=== PATIENT | male | born 1990 | race Hispanic/Latino ===

== ENCOUNTER 2017-12-28 21:26 | Emergency (ER) | payer BC ==
--- NOTE | 2017-12-28 23:50 | EDPHYS ---
Physician Documentation [facility] Name: Eliazar Mallory III Age: 27 yrs Sex: Male : 1990 Arrival Date: 12/28/2017 Time: 21:33 Bed 16 Private MD: ED Physician Jett Quinn HPI: 12/28 23:35 This 27 yrs old Male presents to ER via Ambulatory with complaints of Hand jr8 Injury. 23:35 The patient or guardian reports decreased range of motion, pain. The complaints affect jr8 the right hand diffusely. Context: The problem was sustained at home, resulted from a direct blow. Onset: The symptoms/episode began/occurred acutely, today. Modifying factors: The symptoms are alleviated by nothing, the symptoms are aggravated by movement. Associated signs and symptoms: The patient has no apparent associated signs or symptoms. Severity of symptoms: At their worst the symptoms were moderate, in the emergency department the symptoms are unchanged. The patient has not experienced similar symptoms in the past. The patient has not recently seen a physician. Patient stated that he punched a wall out of anger. Pain to right hand now . Historical: - Allergies: 21:52 No Known Allergies; la1 - PMHx: 21:52 None; la1 - Immunization history:: Adult Immunizations up to date. - Social history:: Smoking status: Patient/guardian denies using tobacco. ROS: 23:35 Eyes: Negative for injury, pain, redness, and discharge, ENT: Negative for injury, jr8 pain, and discharge, Neck: Negative for injury, pain, and swelling, Cardiovascular: Negative for chest pain, palpitations, and edema, Respiratory: Negative for shortness of breath, cough, wheezing, and pleuritic chest pain, Abdomen/GI: Negative for abdominal pain, nausea, vomiting, diarrhea, and constipation, Back: Negative for injury and pain, Skin: Negative for injury, rash, and discoloration, Neuro: Negative for headache, weakness, numbness, tingling, and seizure. 23:35 MS/extremity: Positive for pain, swelling, tenderness, of the right hand. Exam: 23:35 Head/Face: Normocephalic, atraumatic. Eyes: Pupils equal round and reactive to light, jr8 extra-ocular motions intact. Lids and lashes normal. Conjunctiva and sclera are non-icteric and not injected. Cornea within normal limits. Periorbital areas with no swelling, redness, or edema. ENT: Nares patent. No nasal discharge, no septal abnormalities noted. Tympanic membranes are normal and external auditory canals are clear. Oropharynx with no redness, swelling, or masses, exudates, or evidence of obstruction, uvula midline. Mucous membranes moist. Neck: Trachea midline, no thyromegaly or masses palpated, and no cervical lymphadenopathy. Supple, full range of motion without nuchal rigidity, or vertebral point tenderness. No Meningismus. Cardiovascular: Regular rate and rhythm with a normal S1 and S2. No gallops, murmurs, or rubs. Normal PMI, no JVD. No pulse deficits. Respiratory: Lungs have equal breath sounds bilaterally, clear to auscultation and percussion. No rales, rhonchi or wheezes noted. No increased work of breathing, no retractions or nasal flaring. Abdomen/GI: Soft, non-tender, with normal bowel sounds. No distension or tympany. No guarding or rebound. No evidence of tenderness throughout. Back: No spinal tenderness. No costovertebral tenderness. Full range of motion. Skin: Warm, dry with normal turgor. Normal color with no rashes, no lesions, and no evidence of cellulitis. Neuro: Awake and alert, GCS 15, oriented to person, place, time, and situation. Cranial nerves II-XII grossly intact. Motor strength 5/5 in all extremities. Sensory grossly intact. Cerebellar exam normal. Normal gait. 23:35 Musculoskeletal/extremity: Extremities: grossly normal except: noted in the right hand: decreased ROM, ecchymosis, pain, swelling, tenderness, ROM: full active range of motion, limited passive range of motion, limited active range of motion due to pain, limited passive range of motion due to pain, Circulation is intact in all extremities. Sensation intact. Moderate swelling noted to dorsum of right hand. No obvious deformity noted . Vital Signs: 21:52 Pulse 90; Resp 16; Temp 98.4; Pulse Ox 100% on R/A; Weight 99.79 kg; Height 5 ft. 8 in. la1 (172.72 cm); 21:52 BP 126 / 79; la1 23:34 BP 146 / 92; Pulse 81; Resp 16; Pulse Ox 99% on R/A; aa1 21:52 Body Mass Index 33.45 (99.79 kg, 172.72 cm) la1 Procedures: 23:48 Splinting: Splint applied to dorsum of right hand and right hand using Orthoglass jr8 splint, applied by tech. Examined by me, post splint application: neurovascular intact, 2+ distal pulses palpable, brisk capillary refill noted, Patient tolerated well. MDM: 23:30 Patient medically screened. jr8 23:48 Data reviewed: vital signs, nurses notes, radiologic studies, plain films, and as a jr8 result, I will discharge patient. Data interpreted: Pulse oximetry: on room air is 99 %. Interpretation: normal. Counseling: I had a detailed discussion with the patient and/or guardian regarding: the historical points, exam findings, and any diagnostic results supporting the discharge/admit diagnosis, radiology results, the need for outpatient follow up, a orthopedic surgeon, to return to the emergency department if symptoms worsen or persist or if there are any questions or concerns that arise at home. 12/28 23:11 Order name: Hand Right 3 View XRAY snw 12/28 23:48 Order name: Splint - Ulnar Gutter; Complete Time: 23:59 jr8 Administered Medications: No medications were administered Disposition: 12/29 00:20 Co-signature as Attending Physician, Jett Quinn MD. caleb Disposition: 12/28/17 23:49 Discharged to Home. Impression: Displaced fracture of base of fifth metacarpal bone, right hand. - Condition is Stable. - Discharge Instructions: Hand Fracture, Fifth Metacarpal. - Prescriptions for Ibuprofen 800 mg Oral Tablet - take 1 tablet by ORAL route every 12 hours As needed take with food; 20 tablet. - Medication Reconciliation Form, Thank You Letter, Antibiotic Education, Prescription Opioid Use form. - Follow up: Osbaldo Barakat MD; When: 2 - 3 days; Reason: Recheck today's complaints, Continuance of care, Re-evaluation by your physician. - Problem is new. - Symptoms have improved. Signatures: Dispatcher [employer] Anita Yun, RN RN aa1 Jett Quinn MD MD pkl Ej Rubio PA PA jr8 Xavier Emanuel RN RN la1
--- NOTE | 2017-12-28 23:50 | ER ---
Nurse's Notes [facility] Name: Eliazar Mallory III Age: 27 yrs Sex: Male : 1990 Arrival Date: 12/28/2017 Time: 21:33 Bed 16 Private MD: Diagnosis: Displaced fracture of base of fifth metacarpal bone, right hand Presentation: 12/28 21:51 Presenting complaint: Patient states: I punched a wall and want to see if I broke my la1 right hand. Transition of care: patient was not received from another setting of care. Onset of symptoms was December 28, 2017. Care prior to arrival: None. 21:51 Method Of Arrival: Ambulatory la1 21:51 Acuity: BRITNI 4 la1 Historical: - Allergies: 21:52 No Known Allergies; la1 - PMHx: 21:52 None; la1 - Immunization history:: Adult Immunizations up to date. - Social history:: Smoking status: Patient/guardian denies using tobacco. Screenin:34 Abuse screen: Denies threats or abuse. Denies injuries from another. Nutritional aa1 screening: No deficits noted. Tuberculosis screening: No symptoms or risk factors identified. Fall Risk None identified. Assessment: 23:34 General: Appears in no apparent distress. comfortable, Behavior is calm, cooperative, aa1 appropriate for age. Pain: Complains of pain in right hand. Neuro: Level of Consciousness is awake, alert, obeys commands, Oriented to person, place, time, situation. Respiratory: Airway is patent Respiratory effort is even, unlabored, Respiratory pattern is regular, symmetrical. GI: No signs and/or symptoms were reported involving the gastrointestinal system. : No signs and/or symptoms were reported regarding the genitourinary system. EENT: No signs and/or symptoms were reported regarding the EENT system. Derm: Skin is intact, is healthy with good turgor, Skin is pink, warm \T\ dry. Musculoskeletal: Circulation, motion, and sensation intact. Capillary refill < 3 seconds, Swelling present in dorsum of right hand. 12/29 00:00 Reassessment: Patient appears in no apparent distress at this time. Patient is alert, aa1 oriented x 3, equal unlabored respirations, skin warm/dry/pink. Discussed d/c \T\ f/u instructions with pt; denies questions or concerns at this time. Vital Signs: 12/28 21:52 Pulse 90; Resp 16; Temp 98.4; Pulse Ox 100% on R/A; Weight 99.79 kg; Height 5 ft. 8 in. la1 (172.72 cm); 21:52 BP 126 / 79; la1 23:34 BP 146 / 92; Pulse 81; Resp 16; Pulse Ox 99% on R/A; aa1 21:52 Body Mass Index 33.45 (99.79 kg, 172.72 cm) la1 ED Course: 21:33 Patient arrived in ED. as 21:52 Triage completed. la1 21:52 Arm band placed on left wrist. la1 23:30 Ej Rubio PA is PHCP. jr8 23:30 Jett Quinn MD is Attending Physician. jr8 23:34 Anita Wong, NATALIA is Primary Nurse. aa1 23:34 Patient has correct armband on for positive identification. Bed in low position. Call aa1 light in reach. Pulse ox on. NIBP on. 23:37 X-ray completed. Portable x-ray completed in exam room. Patient tolerated procedure kw well. 23:39 Hand Right 3 View XRAY In Process Unspecified. EDMS 23:49 Osbaldo Barakat MD is Referral Physician. jr8 12/29 00:00 No provider procedures requiring assistance completed. Patient did not have IV access aa1 during this emergency room visit. Orthoglass splint: Ulnar gutter/Boxer splint applied on right forearm. Sling applied to right arm. Administered Medications: No medications were administered Outcome: 12/28 23:49 Discharge ordered by . jr8 12/29 00:00 Discharged to home ambulatory. aa1 Condition: good Discharge instructions given to patient, Instructed on discharge instructions, follow up and referral plans. medication usage, Demonstrated understanding of instructions, follow-up care, medications, splint care, Prescriptions given X 1. 00:08 Patient left the ED. aa1 Signatures: Dispatcher [employer] EDMS Anita Wong, RN RN aa1 Bridget Mallory Kimberlee kw Roszak, Josh, PA PA jr8 Xavier Emanuel RN RN la1
--- NOTE | 2017-12-29 07:42 | RAD REPORT ---
EXAM DESCRIPTION: RAD - Hand Right 3 View - 12/28/2017 11:39 pm CLINICAL HISTORY: Right hand pain, blunt force trauma COMPARISON: None. FINDINGS: No fracture of the phalanges identified and no fracture of the first-fourth metacarpals id entifiable. There is a fracture near the hamate fifth metacarpal articulation. This is suspected to b e hamate fracture with dorsal displacement of the metacarpal and fracture fragment. No other carpal b one fracture confirmed. Thin-section follow-up CT imaging may be helpful for further characterization of the fracture and to better assess the degree of dorsal displacement. No foreign body. No air in t he soft tissues. IMPRESSION: Fracture near the carpal fifth metacarpal articulation believed to be hamate fracture wi th dorsal displacement of the fifth metacarpal base. Followup thin section CT imaging may be helpful for better assessment of the fracture and severity of displacement.
== END 2017-12-29 00:08 | disposition home or self-care (01) ==
LOC: ER 21:26
PROC: 2W3CX1Z Immobilization of Right Lower Arm using Splint (ICD-10-PCS; principal; 2017-12-29)
DX: S62.316A Displaced fracture of base of fifth metacarpal bone, right hand, initial encounter for closed fracture (principal); X58.XXXA Exposure to other specified factors, initial encounter; Y93.89 Activity, other specified; Y92.009 Unspecified place in unspecified non-institutional (private) residence as the place of occurrence of the external cause
CPT/HCPCS: 99284